=== PATIENT | male | born 1960 | race Two or more races ===

== ENCOUNTER → 2023-12-22 | Outpatient (CLI) | payer MEDICAID | END | disposition home or self-care (01) | LOC: Rad HDHVI 09:44 | PROVIDERS: ATTEND Internal Medicine Cardiovascular Disease | DX: I08.1 Rheumatic disorders of both mitral and tricuspid valves (principal); I11.9 Hypertensive heart disease without heart failure | CPT/HCPCS: 93306 ==

== ENCOUNTER → 2024-02-13 | Outpatient (CLI) | payer MEDICAID ==
[~2024-02-13] VITALS: Ht 170.2 cm; Wt 78.0 kg
[~2024-02-13] MED LIST: ASPI81CH74 PO; ATOR20TA PO; CLOP75TA28 PO; CYCL-614 PO; DICL1GEL59 TOP; DORZ2SOL18 EACHEYE; GABA-1250 PO; LATA0.0020 EACHEYE; NAP500T PO; TAMS0.4C36 PO; TRAM50TA2 PO
== END | disposition home or self-care (01) ==
LOC: Rad HDHVI 12:42
PROVIDERS: ATTEND Internal Medicine Cardiovascular Disease
DX: I08.0 Rheumatic disorders of both mitral and aortic valves (principal); R00.0 Tachycardia, unspecified; I25.10 Atherosclerotic heart disease of native coronary artery without angina pectoris; R07.89 Other chest pain; R06.02 Shortness of breath; E78.5 Hyperlipidemia, unspecified; I10 Essential (primary) hypertension; Z82.49 Family history of ischemic heart disease and other diseases of the circulatory system
CPT/HCPCS: 78452; 93017; 93306; 96374; A9500